=== PATIENT | male | born 1940 | race Caucasian/White ===

== ENCOUNTER 2017-03-29 13:14 | Observation (INO) | payer MEDICARE ==
[2017-03-29 13:57] LABS: #Lymphocytes 2.1 thou/uL (1.20-3.40); #Neutrophils 4.2 thou/uL (1.40-6.50); %Basophils 0.1 % (0.0-1.0); %Eosinophils 0.3 % (0.0-10.0); %Monocytes 13.5 % (0.0-10.0); Hematocrit 41.9 % (42.0-52.0); Red Blood Cell (RBC) Count 4.48 mill/uL (4.70-6.10); White Blood Cell (WBC) Count 7.4 thou/uL (4.8-10.8)
[2017-03-29 14:27] LABS: ALT (SGPT) 47 U/L (8-55); AST (SGOT) 26 U/L (5-34); Alkaline Phosphatase 53 U/L (40-150); Anion Gap 10 mmol/L (10-20); BUN (Urea Nitrogen) 26 mg/dL (8.4-25.7); Bilirubin, Total 0.4 mg/dL (0.2-1.2); CK (CPK) 186 U/L (30-200); Calc. Creatinine Clearance 0 mL/min (70-130); Calcium 8.4 mg/dL (7.8-10.44); Carbon Dioxide 25 mmol/L (23-31); Chloride 107 mmol/L (98-107); Estimated GFR-MDRD 65; Globulin 2.2 g/dL (2.4-3.5); Protein, Total 5.7 g/dL (5.8-8.1)
[2017-03-29 14:30] LABS: Troponin I Less than 0.010 ng/mL (< 0.028)
--- NOTE | 2017-03-29 14:46 | RAD ---
RADIOGRAPH CHEST 1 VIEW: HISTORY: 77-year-old male with acute chest pain. FINDINGS: The thoracic aorta is tortuous and ectatic. There is no evidence of air space density, pneumothorax , or pulmonary edema. The lateral costophrenic angles are sharp. There is a dual lead left subclavian pacemaker. There is no interval change since 10/01/07. IMPRESSION: 1. No acute pulmonary findings. 2. Ectasia of thoracic aorta. 3. Left subclavian pacemaker. levi soto POS: KEVIN
[2017-03-29 16:13] VITALS: BMI 26.5
[2017-03-29] MEDS ORDERED: Artificial Tear Sol 15 ML BOT EA EYE PRN (16:13)
[2017-03-29] MEDS ORDERED: HYDROcodone/Acetaminophen 5/325 mg Tablet PO PRN (16:13)
[2017-03-29] MEDS ORDERED: Sodium Chloride 0.65% Nasal 44 ML BOT EA NARE PRN (16:13)
[2017-03-29] MEDS ORDERED: Zolpidem Tartrate 5 MG TAB PO PRN (16:13)
[2017-03-29] MEDS ORDERED: Eucerin (Mineral Oil/Petrolatum,White) 30 gm Jar TOP PRN (16:13)
[2017-03-29] MEDS ORDERED: Ondansetron HCl/PF 4 MG/2 ML Vial IVP PRN (16:13)
[2017-03-29] MEDS ORDERED: Acetaminophen 325 MG TAB PO PRN (16:13)
[2017-03-29] MEDS ORDERED: hydrALAZINE 20 MG/ML VIAL SLOW IVP PRN (16:13)
[2017-03-29] MEDS ORDERED: Milk Of Magnesia 30 ML UDCUP PO PRN (16:13)
[2017-03-29] MEDS ORDERED: Diabetic Tussin 200 MG/10 ML UDCUP PO PRN (16:13)
[2017-03-29] MEDS ORDERED: Senokot 8.6 MG TAB PO PRN (16:13)
[2017-03-29] MEDS ORDERED: Ondansetron ODT 4 MG TAB PO PRN (16:13)
[2017-03-29] MEDS ORDERED: Nitroglycerin 0.4 MG TAB (25 Tab Bottle) SL PRN (16:13)
[2017-03-29] MEDS ORDERED: Loperamide HCl 2 MG CAP PO PRN (16:13)
--- NOTE | 2017-03-29 16:31 | HP ---
PRIMARY CARE PHYSICIAN: Dr. Didier Lindquist in [place]. REASON FOR ADMISSION: Chest pain, dyspnea. HISTORY OF PRESENT ILLNESS: A 77-year-old male who reports that he had pacemaker done about 9 years ago for low pulse rate and he saw Dr. Bui in January. At that time, he was told that his pacem teja battery is no longer functioning and he is going to see Dr. Bui in next couple of months. This patient was not feeling good yesterday. He does not describe his symptoms well enough, but he feels that he was feeling bloated in his stomach. He was having some epigastric discomfort and he w as also having left-sided chest pain. He was not feeling good test in his mouth. He was also feeli ng more fatigued and weak. Patient was also reporting that lately he was getting out of breath after walking a few steps and he was also having orthopnea. He denies any PND. He denies any lower extremity pitting edema. As he was not feeling better, that is why today he went to a walk-in clinic in [place] and subsequently h e was advised to go to the emergency room for evaluation. Paramedics gave him aspirin. They started on nitro drip, which was stopped when he arrived to the E [facility]. The patient is a very poor historian. He denies any fever or chills. He denies any UTI symptom s. He denies any constipation, diarrhea. He denies any abdominal pain. He denies any dizziness or syncopal episode. REVIEW OF SYSTEMS: The following complete review of systems was negative, unless otherwise mentione d in the HPI or below: CONSTITUTIONAL: Weight loss or gain, ability to conduct usual activities. SKIN: Rash, itching. EYES: Double vision, pain. ENT/MOUTH: Nose bleeding, neck stiffness, pain, tenderness. CARDIOVASCULAR: Palpitations, dyspnea on exertion, orthopnea. RESPIRATORY: Shortness of breath, wheezing, cough, hemoptysis, fever or night sweats. GASTROINTESTINAL: Poor appetite, abdominal pain, heartburn, nausea, vomiting, constipation, or diar niraj. GENITOURINARY: Urgency, frequency, dysuria, nocturia. MUSCULOSKELETAL: Pain, swelling. NEUROLOGIC/PSYCHIATRIC: Anxiety, depression. ALLERGY/IMMUNOLOGIC: Skin rash, bleeding tendency. Please see my HPI for pertinent positives and negatives. All other review of system reviewed and ne gative except as mentioned in the HPI. PAST MEDICAL HISTORY: History of slow heart rate required pacemaker, hypertension. PAST SURGICAL HISTORY: Pacemaker placement, hernia repair. PAST PSYCHIATRIC HISTORY: Reviewed and negative. SOCIAL HISTORY: Patient is and lives at home in [place]. No history of tobacco, alcohol or illicit drug abuse. FAMILY HISTORY: No strong family history of premature coronary artery disease, stroke or cancer. ALLERGIES: No known drug allergies. CURRENT HOME MEDICATIONS: Toprol-XL 25 mg p.o. daily. EMERGENCY ROOM COURSE: Reviewed. The patient was given aspirin, nitro drip by paramedics and IV fl uid by paramedics. PHYSICAL EXAMINATION: VITAL SIGNS: Currently, blood pressure 106/75, pulse 65, respiratory rate is 16, temperature 98.2, saturation 99% on room air. Weight 80.29 kilograms. GENERAL: Patient is currently alert, awake, no obvious acute distress. HEAD: Normocephalic, atraumatic. EYES: Pupils round, reactive to light. Extraocular muscles intact. ENT: Oropharynx within normal limits. Moist mucous membranes. No oral lesions. No pharyngeal angelica thema, no exudate. NECK: Supple. Range of motion is normal. No meningeal signs of irritation. LUNGS: Clear to auscultation, no wheeze, no rhonchi, no rales. CARDIAC: S1, S2 regular. No murmur, no gallop, no rub. Pacemaker in place. ABDOMEN: Patient does have epigastric discomfort, but no peritoneal sign, no organomegaly, no mass, no Wilson's sign, no suprapubic tenderness. BACK: Unremarkable, no CVA tenderness. EXTREMITIES: Upper extremity: Passive movement of all joints are normal. Lower extremities: No e arun. Good peripheral pulsation. SKIN: No skin rash. HEMATOLOGICAL: No lymphadenopathy. NEUROLOGIC: Nonfocal examination. The patient moves all 4 limbs. Plantar bilateral flexor. PSYCHIATRIC: Normal affect. SIGNIFICANT LABS: EKG based on my review pacemaker rhythm. Chest x-ray based on my review, no acut e cardiopulmonary process. Left subclavian pacemaker in place. CBC: WBC 7.4, hemoglobin 14.2, margaret telets 124. BMP: Sodium 138, potassium 4.3, chloride 107, carbon dioxide 25, BUN 26, creatinine 1. 09, glucose 91, calcium 8.4. LFT: AST 26, ALT 47, alkaline phosphatase 53, albumin 3.5, CK 186, CK-MB 5.8. Troponin I less than 0.010. BNP 1250.2. ASSESSMENT AND PLAN/IMPRESSION: 1. Chest pain. The patient does report intermittent left-sided chest pain. His description is aty pical and mostly nonanginal, but we will do serial cardiac enzymes and rule out acute coronary syndr ome for further evaluation. We will perform tomorrow Cardiolite stress test. Meanwhile, we will co ntinue with aspirin 325 mg p.o. daily. We will check lipid profile for risk stratification. We ember l also check TSH. 2. Epigastric pain. The patient also reports epigastric abdominal pain. His LFTs are normal. At this point, we will do right upper quadrant ultrasound to rule out any gallbladder pathology. I ember l treat symptomatically with Pepcid 20 mg p.o. b.i.d. 3. Elevated BNP. Etiology uncertain. This patient does report orthopnea. He does not have any lo wer extremity edema. He does not have any congestion on chest x-ray as well as on examination, we w ill do echocardiography to assess ejection fraction and other structural abnormality. 4. Hypertension. Patient is on Toprol-XL 25 mg p.o. daily, which [facility]. 5. Pacemaker. The patient had pacemaker about 9 years ago and he never checked his pacemaker. We will call pacemaker interrogator company to interrogate his pacemaker and if pacemaker is not functi oning properly, then we will consider Cardiology consultation for his battery exchange during this a dmission if needed. 6. Deep venous thrombosis prophylaxis not needed because we are expecting discharge in 24 hours. 7. Gastrointestinal prophylaxis, Pepcid 20 mg p.o. b.i.d. 8. Code status: The patient is FULL CODE. Disposition plan based on clinical course, likely within 24-48 hours. Plan of care discussed with t he patient's family member in the emergency room.
[2017-03-29] MEDS: Mag-Al 1200 mg/1200 mg/30 ML UDCUP PO PRN (17:47)
[2017-03-29 17:53] LABS: Troponin I 0.011 ng/mL (< 0.028)
[2017-03-29 20:56] LABS: Troponin I Less than 0.010 ng/mL (< 0.028)
[2017-03-29] MEDS: Famotidine 20 MG TAB PO SCH (21:42)
[2017-03-30] MEDS: Mag-Al 1200 mg/1200 mg/30 ML UDCUP PO PRN (05:16)
[2017-03-30 07:55] VITALS: TEMP 97.5
--- NOTE | 2017-03-30 08:32 | ULT ---
ULTRASOUND ABDOMEN LIMITED: (RIGHT UPPER QUADRANT) Date: Time: 0741 hours HISTORY: 77-year-old female with acute epigastric pain. FINDINGS: The gallbladder wall is thickened at the fundus, where it measures approximately 4 mm. No gallstone is identified. No sonographic Wilson's sign. No gallbladder sludge. Gallbladder wall thickness is wi thin normal limits more proximally. Hepatic echogenicity is normal. There is an approximately 1.5 cm hepatic cyst very close to the gall bladder. No hydronephrosis of the right kidney. Common duct is 3 mm in caliber. Nonspecific sonograp hic appearance of the pancreas, which is incompletely visualized. No free fluid in Morison's pouch. IMPRESSION: 1. Mural thickening of the fundus of the gallbladder. Etiology and significance uncertain. 2. No evidence of cholelithiasis, and negative sonographic Wilson's sign. MATILDE Macdonald POS: KEVIN
[2017-03-30] MEDS ORDERED: Aspirin 325 MG TAB PO SCH (09:00)
--- NOTE | 2017-03-30 10:08 | PDOC.PN ---
- Subjective Encounter Start Date: 03/30/17 Encounter Start Time: 07:00 -: old records requested/rev Patient seen and examined. No new complaints. No overnight events - Objective Resuscitation Status: Resuscitation Status FULL:Full Resuscitation MAR Reviewed: Yes Vital Signs & Weight: Vital Signs (12 hours) Temp Pulse Resp BP BP Pulse Ox 03/30/17 08:10 97.5 F L 65 16 03/30/17 07:52 97.5 F L 65 16 113/72 97 03/30/17 04:47 96 03/30/17 03:33 99 F 65 14 110/76 94 L 03/29/17 23:13 98.8 F 65 16 98/64 96 Weight Weight 175 lb 8 oz I&O: 03/29/17 03/30/17 03/31/17 06:59 06:59 06:59 Intake Total 450 Output Total 350 Balance 100 Result Diagrams: 03/29/17 13:41 03/29/17 13:41 EKG Reviewed by me: Yes Phys Exam - Physical Examination Constitutional: NAD HEENT: PERRLA, moist MMs, sclera anicteric Neck: no JVD, supple Respiratory: no wheezing, no rales, no rhonchi Cardiovascular: RRR, no significant murmur, no rub Gastrointestinal: soft, non-tender, no distention, positive bowel sounds Musculoskeletal: no edema, pulses present Neurological: non-focal, normal sensation Psychiatric: normal affect, A&O x 3 Skin: no rash, normal turgor Dx/Plan (1) Chest pain Code(s): R07.9 - CHEST PAIN, UNSPECIFIED Status: Acute (2) Elevated brain natriuretic peptide (BNP) level Code(s): R79.89 - OTHER SPECIFIED ABNORMAL FINDINGS OF BLOOD CHEMISTRY Status : Acute (3) Epigastric abdominal pain Code(s): R10.13 - EPIGASTRIC PAIN Status: Acute (4) Hypertension Code(s): I10 - ESSENTIAL (PRIMARY) HYPERTENSION Status: Chronic (5) Pacemaker Code(s): Z95.0 - PRESENCE OF CARDIAC PACEMAKER Status: Chronic - Plan cont current plan of care, plan discussed w/ family * pacemaker interrogation today * echo today * stress test today * if all unremarkable will dc later today * medication reviewed as below * symptomatic treatment. Review of Systems - Review of Systems ENT: negative: Ear Pain, Ear Discharge, Nose Pain, Nose Discharge, Nose Congestion, Mouth Pain, Mouth Swelling, Throat Pain, Throat Swelling, Other Respiratory: negative: Cough, Dry, Shortness of Breath, Hemoptysis, SOB with Excertion, Pleuritic Pain, Sputum, Wheezing Cardiovascular: negative: Chest Pain, Palpitations, Orthopnea, Paroxysmal Noc. Dyspnea, Edema, Light Headedness, Other Gastrointestinal: negative: Nausea, Vomiting, Abdominal Pain, Diarrhea, Constipation, Melena, Hematochezia, Other Genitourinary: negative: Dysuria, Frequency, Incontinence, Hematuria, Retention , Other Musculoskeletal: negative: Neck Pain, Shoulder Pain, Arm Pain, Back Pain, Hand Pain, Leg Pain, Foot Pain, Other - Medications/Allergies Allergies/Adverse Reactions: Allergies Allergy/AdvReac Type Severity Reaction Status Date / Time No Known Allergies Allergy Verified 03/29/17 16:47 Medications: Current Medications Acetaminophen (Tylenol) 650 mg PO Q4H PRN PRN Reason: Headache/Fever or Pain Last Admin: 03/30/17 05:16 Dose: 650 mg Hydrocodone Bitart/Acetaminophen ([place] 5/325) 1 tab PO Q4H PRN PRN Reason: Moderate Pain (4-6) Al Hydroxide/Mg Hydroxide (Maalox) 30 ml PO Q6H PRN PRN Reason: Heartburn or Indigestion Last Admin: 03/30/17 05:16 Dose: 30 ml Artificial Tears (Tears Renewed 15ml Bottle) 0 drop EA EYE PRN PRN PRN Reason: Dry Eyes Aspirin (Aspirin) 325 mg PO DAILY [facility] Famotidine (Pepcid) 20 mg PO BID [facility] Last Admin: 03/29/17 21:42 Dose: 20 mg Guaifenesin (Robitussin Sf) 200 mg PO Q4H PRN PRN Reason: Cough Hydralazine HCl (Apresoline) 10 mg SLOW IVP Q4H PRN PRN Reason: Systolic BP > 180 Loperamide HCl (Imodium) 2 mg PO PRN PRN PRN Reason: Diarrhea/Loose Stools Magnesium Hydroxide (Milk Of Magnesium) 30 ml PO DAILYPRN PRN PRN Reason: Constipation Mineral Oil/White Petrolatum (Eucerin Cream) 0 gm TOP BIDPRN PRN PRN Reason: Dry Skin Nitroglycerin (Nitrostat) 0.4 mg SL Q5MIN PRN PRN Reason: Chest Pain Ondansetron HCl (Zofran Odt) 4 mg PO Q6H PRN PRN Reason: Nausea/Vomiting Ondansetron HCl (Zofran) 4 mg IVP Q6H PRN PRN Reason: Nausea/Vomiting Senna (Senokot) 2 tab PO HSPRN PRN PRN Reason: Constipation Sodium Chloride ([place] Nasal [place] 0.65%) 0 ml EA NARE QIDPRN PRN PRN Reason: Nasal Congestion Zolpidem Tartrate (Ambien) 5 mg PO HSPRN PRN PRN Reason: Insomnia
[2017-03-30] MEDS: Famotidine 20 MG TAB PO SCH (11:42)
[2017-03-30 11:52] VITALS: BP 111/78
[2017-03-30] MEDS ORDERED: ADENOSINE 60 MG/20 ML VIAL ONE (12:00)
--- NOTE | 2017-03-30 14:08 | NM ---
NUCLEAR MEDICINE CARDIAC MYOCARDIAL PERFUSION SPECT EJECTION FRACTION STUDY WALL MOTION CINE: Date: 03/30/17 HISTORY: 77-year-old male with chest pain and dyspnea. TECHNIQUE: Number of days: 1 Rest study: Tc99m sestamibi (Cardiolite) dose: 9.5 mCi Pharmacologic stress: adenosine dose: 44.2 mg Stress study: Tc99m sestamibi (Cardiolite) dose: 28.3 mCi FINDINGS: CARDIAC (MYOCARDIAL PERFUSION) SPECT Sestamibi uptake throughout the left ventricular myocardium is homogeneous and normal, with no fixed defect and no reversible defect. EJECTION FRACTION STUDY EF = 54% WALL MOTION CINE There is mild hypokinesis of the septum. The rest of the left ventricle moves normally. IMPRESSION: No evidence of myocardial ischemia or infarction. MATILDE Macdonald POS: KEVIN
--- NOTE | 2017-03-30 15:26 | DIS ---
DATE OF ADMISSION: 03/29/2017 DATE OF DISCHARGE: 03/30/2017 PRIMARY CARE PHYSICIAN: Didier Lindquist M.D. in [place]. DISCHARGE DISPOSITION: Home. PRIMARY DISCHARGE DIAGNOSES: 1. Chest pain, ruled out acute coronary syndrome. 2. Elevated BNP due to systolic and diastolic dysfunction. 3. Epigastric abdominal pain, resolved. SECONDARY DISCHARGE DIAGNOSES: Hypertension, pacemaker. PRIMARY PROCEDURE/OPERATION: None. RADIOLOGICAL INVESTIGATION: Chest x-ray normal. Abdominal ultrasound showed fundus of the gallblad la was thick, but no Wilson sign. Echocardiography showed diastolic dysfunction. Stress test was negative for any ischemia. SIGNIFICANT LABORATORY DATA: Hemoglobin 14.2, creatinine 1.09, LDL 68, triglyceride 108. Cholester ol 121, HDL 31. Cardiac enzymes negative. BNP 1250. DISCHARGE MEDICATIONS: The patient will continue all his previous home medications. Aspirin 81 mg p.o. daily, Pepcid 20 mg p.o. b.i.d., Toprol-XL 25 mg p.o. daily, and lisinopril 2.5 mg p.o. daily. CONTRAINDICATIONS: None. CODE STATUS: FULL CODE. INPATIENT CONSULTANTS: None. ALLERGIES: No known drug allergies. DISCHARGE PLAN: Post-hospital, patient will follow with primary care physician. HOSPITAL COURSE: A 77-year-old male with above-mentioned medical problem who was admitted by me. Erlinda bell see my HPI for further details. This patient was having vague epigastric and right-sided ches t pain. The patient was admitted to telemetry floor. We did serial cardiac enzyme and that were ne gative. Surprisingly, his BNP was elevated and he was also having some orthopnea and that is why we did echocardiography and found with systolic and diastolic dysfunction. He was already on Toprol-X L. I started on Lisinopril 2.5 mg p.o. daily. He was having epigastric abdominal pain and that is why I did an abdominal ultrasound that was unremarkable. We also did stress test as a part of ische jarrett workup and that was also negative for any ischemia. At this point, the patient is completely as ymptomatic. We are starting on lisinopril and the above-mentioned medication. The patient is medic ally stable for discharge and he will follow with primary care physician. This patient also has pac emaker and we did a pacemaker interrogation and his battery is going to last for another two and f months and that is why I advised this patient to follow with Dr. Bui, so they can change his pacemaker battery.
--- NOTE | 2017-04-05 11:49 | EKG ---
Test Reason : CHEST PAIN Blood Pressure : / mmHG Vent. Rate : 065 BPM Atrial Rate : 066 BPM P-R Int : 000 ms QRS Dur : 182 ms QT Int : 466 ms P-R-T Axes : 000 -57 094 degrees QTc Int : 484 ms Electronic ventricular pacemaker Confirmed by BRENNEN GOLDEN, GILMAR An ([id number]), assignment editor ONEL DODD ([id number]) on 04/05/2017 11:49:17 AM Referred By: Confirmed By:GILMAR HUTTON MD
--- NOTE | 2017-04-18 10:24 | STRESS ---
Acquisition Time: 2017-03-30 09:39:53 Total Exercise Time: 00:04:00 Test Indications: CHEST PAIN Medications: Protocol: ADENOSINE Max HR: 076 BPM 53% of Pred: 141 BPM Max BP: 120/080 mmHG Max Work Load: 1.0 METS RESTING ECG: VENTRICULAR PACING AT 69 BPM SYMPTOMS: NONE APPROPRIATE BP RESPONSE ECTOPY: NONE ECG STRESS: NO SIGNIFICANT CHANGES INTERPRETATION: INDETERMINATE ECG/AWAIT NUCLEAR IMAGES FOR DEFINITIVE DIAGNOSIS Confirmed by KENDALL MENESES ([id number]), department editor KEYANNA GONZALEZ ([id number]) on 04/18/2017 10:24:01 AM Referred By: MD Mika DOMINGO Confirmed By:KENDALL MENESES
--- NOTE | 2017-05-20 08:59 | EKG ---
Test Reason : CP Blood Pressure : / mmHG Vent. Rate : 065 BPM Atrial Rate : 065 BPM P-R Int : 000 ms QRS Dur : 148 ms QT Int : 420 ms P-R-T Axes : 000 -76 093 degrees QTc Int : 436 ms Poor data quality, interpretation may be adversely affected Electronic ventricular pacemaker When compared with ECG of 29-MAR-2017 13:31, (Unconfirmed) No significant change was found Confirmed by KENDALL MENESES ([id number]) on 05/20/2017 8:59:15 AM Referred By: CHAYO Confirmed By:KENDALL MENESES
== END 2017-03-30 14:29 | disposition home or self-care (01) ==
LOC: ERS 13:14 → 2SW 16:03
PROVIDERS: ADMIT Internal Medicine; ATTEND Internal Medicine
DX: R07.89 Other chest pain (principal); R10.13 Epigastric pain; R79.89 Other specified abnormal findings of blood chemistry; I10 Essential (primary) hypertension; Z95.0 Presence of cardiac pacemaker; Z79.899 Other long term (current) drug therapy; Z98.890 Other specified postprocedural states
CPT/HCPCS: 71010; 76705; 78452; 80053; 80061; 82550; 82553; 83880; 84484 ×2; 85025; 93005; 93017; 93306; 99285; A9500; G0378; 36415; 93010; J0153

== ENCOUNTER 2017-04-01 10:53 | Outpatient (CLI) | payer MEDICARE ==
[2017-04-01 13:36] LABS: Hematocrit 48.9 % (42.0-52.0); Mean Platelet Volume 9.5 fL (7.4-10.4); Red Blood Cell (RBC) Count 5.22 mill/uL (4.70-6.10); White Blood Cell (WBC) Count 7.9 thou/uL (4.8-10.8)
[2017-04-01 13:51] LABS: Anion Gap 12 mmol/L (10-20); BUN (Urea Nitrogen) 22 mg/dL (8.4-25.7); Calc. Creatinine Clearance 0 mL/min (70-130); Calcium 9.4 mg/dL (7.8-10.44); Carbon Dioxide 28 mmol/L (23-31); Chloride 106 mmol/L (98-107); Estimated GFR-MDRD 67
== END 2017-04-01 10:54 | disposition home or self-care (01) ==
LOC: LABBT 10:53
PROVIDERS: ATTEND Internal Medicine Cardiovascular Disease
DX: Z01.818 Encounter for other preprocedural examination (principal)
CPT/HCPCS: 80048; 85027

== ENCOUNTER 2017-04-02 06:01 | Day surgery (SDC) | payer MEDICARE ==
[2017-04-01 10:17] VITALS: BMI 25.8
[2017-04-02] MEDS ORDERED: ceFAZolin Sodium 1 GM VIAL ONE (07:04)
[2017-04-02] MEDS ORDERED: Gentamicin 80 MG/2 ML VIAL ONE (07:05)
[2017-04-02] MEDS ORDERED: Fentanyl 100 MCG/2 ML VIAL ONE (07:19)
[2017-04-02] MEDS ORDERED: Midazolam HCl 2 mg/2 ml Vial ONE (07:19)
[2017-04-02] MEDS ORDERED: Lidocaine 1% (PF) 30 ML VIAL ONE (07:21)
--- NOTE | 2017-04-02 08:36 | CCL ---
PROCEDURE NOTE: Date: 04/02/17 PROCEDURE: Pacemaker generator change. INDICATION: Pacemaker at elective replacement indicator. DESCRIPTION OF PROCEDURE: The patient was brought to the cardiac labor economist and the left subclavian area was prepped and draped. Patient was given Versed 1 mg and fentanyl 25 mg for sedation. Sedation was monitored throughout the duration of the case for approximately 45 minutes. 1% lidocaine was infiltrated. Pacemaker generator was removed using blunt and sharp dissection. Plasma electrocautery was used. An antibiotic solution-soaked gauze was placed into the pocket after the pacemaker was removed. Right atrial lead: P-wave 5.6, impedance 436, threshold 0.4 volts. Right ventricular lead: R-wave 18.1 impedance 1024, threshold 0.4 volts. The antibiotic solution-soaked gauze was removed and further hemostasis was obtained. The subcutaneous pocket was irrigated with copious amounts of antibiotic solution. The leads were attached to the new pacemaker generator and this was inserted into the pocket and secured in place with one suture of 0 silk. The incision was then closed using two layers of running 3-0 Vicryl and one layer running 4-0 Vicryl. Dermabond was placed on the incision. The patient tolerated the procedure well. WHIT
== END 2017-04-02 11:15 | disposition home or self-care (01) ==
LOC: CCL 06:01
PROVIDERS: ATTEND Internal Medicine Cardiovascular Disease
PROC: 0JPT0PZ Removal of Cardiac Rhythm Related Device from Trunk Subcutaneous Tissue and Fascia, Open Approach (ICD-10-PCS; principal; 2017-04-02)
PROC: 0JH606Z Insertion of Pacemaker, Dual Chamber into Chest Subcutaneous Tissue and Fascia, Open Approach (ICD-10-PCS; 2017-04-02)
DX: Z45.010 Encounter for checking and testing of cardiac pacemaker pulse generator [battery] (principal); N40.0 Benign prostatic hyperplasia without lower urinary tract symptoms; I50.30 Unspecified diastolic (congestive) heart failure; I11.0 Hypertensive heart disease with heart failure; Z79.82 Long term (current) use of aspirin
CPT/HCPCS: 33228; C1785; 99152; 99153; J0690; J1580; J2001; J2250; J3010

== ENCOUNTER 2023-12-11 10:07 | Outpatient (CLI) | payer MEDICARE ==
[2023-12-11 13:08] LABS: #Basophils 0.02 10x3/uL (0.0-0.2); #Eosinphils 0.26 10x3/uL (0.0-0.5); #Neutrophils 2.53 10x3/uL (1.5-8.4); %Basophils 0.3 % (0.0-2.0); %Eosinophils 4.3 % (0.0-6.0); %Monocytes 11.7 % (0.0-10.0); %Neutrophils 42.4 % (40.0-75.0); Hematocrit 44.5 % (38.8-50.0); Hemoglobin 15.5 g/dL (13.5-17.5); Mean Corpuscular HGB CONC 34.8 g/dL (32.0-36.0); Mean Corpuscular Hemoglobin 31.6 pg (27.0-33.0); Mean Corpuscular Volume 90.6 fL (81.2-95.1); Mean Platelet Volume 11.4 fL (7.4-10.4); Platelet Count 173 10x3/uL (150-450); RBC Distribution Width 12.8 % (11.5-14.5); Red Blood Cell (RBC) Count 4.91 10x6/uL (4.32-5.72)
== END 2023-12-11 10:08 | disposition home or self-care (01) ==
LOC: LABBT 10:07
PROVIDERS: ATTEND Orthopaedic Surgery Hand Surgery
DX: Z01.818 Encounter for other preprocedural examination (principal); G56.03 Carpal tunnel syndrome, bilateral upper limbs
CPT/HCPCS: 85025; 93005; 93010

== ENCOUNTER 2023-12-16 06:44 | Day surgery (SDC) | payer MEDICARE ==
[2023-12-11 10:56] VITALS: BMI 24.7
[2023-12-16] MEDS ORDERED: Betamet Acet/Betamet Na Ph 30 MG/5 ML VIAL ONE (09:12)
[2023-12-16] MEDS ORDERED: Bacitracin Zinc Ointment 30 gm TUBE ONE (09:12)
[2023-12-16] MEDS ORDERED: Bupivacaine PF 0.5% 30 ML VIAL ONE (09:13)
[2023-12-16] MEDS ORDERED: Sodium Chloride 0.9% 100 ML ONE (09:30)
[2023-12-16] MEDS ORDERED: CEFAZOLIN 2 GM VIAL ONE (09:30)
[2023-12-16] MEDS ORDERED: PROPOFOL 20 ML ONE (09:30)
[2023-12-16] MEDS ORDERED: fentaNYL PF 100 MCG/2 ML SYRINGE ONE (09:53)
[2023-12-16] MEDS ORDERED: Ondansetron PF 4 MG/2 ML Vial ONE (09:55)
[2023-12-16] MEDS ORDERED: Dexamethasone 4 mg/ml Vial ONE (09:55)
[2023-12-16] MEDS ORDERED: Lidocaine 1% PF 5 ML VIAL ONE (09:55)
[2023-12-16] MEDS ORDERED: PHENYLEPHRINE-NS 100 MCG/ML 10 ML SYRINGE ONE (09:59)
== END 2023-12-16 12:03 | disposition home or self-care (01) ==
LOC: SDC 06:44
PROVIDERS: ATTEND Orthopaedic Surgery Hand Surgery
PROC: 01N53ZZ Release Median Nerve, Percutaneous Approach (ICD-10-PCS; principal; 2023-12-16)
DX: G56.03 Carpal tunnel syndrome, bilateral upper limbs (principal); I25.10 Atherosclerotic heart disease of native coronary artery without angina pectoris; I48.91 Unspecified atrial fibrillation; Z98.890 Other specified postprocedural states; Z79.01 Long term (current) use of anticoagulants; Z79.890 Hormone replacement therapy; Z79.899 Other long term (current) drug therapy
CPT/HCPCS: 64721; A6223; J0665; J1100; J2405; J2704; J3490; J0702

== ENCOUNTER 2024-06-15 10:36 | Outpatient (CLI) | payer MEDICARE ==
[2024-06-15 11:49] LABS: #Basophils 0.04 10x3/uL (0.0-0.2); %Basophils 0.6 % (0.0-1.0); %Eosinophils 10.9 % (0.0-10.0); %Lymphocytes 37.4 % (21.0-51.0); %Monocytes 10.1 % (0.0-10.0); %Neutrophils 40.7 % (42.0-75.0); Hematocrit 45.2 % (42.0-52.0); Hemoglobin 15.4 g/dL (14.0-18.0); Mean Corpuscular HGB CONC 34.1 g/dL (32.0-36.0); Mean Corpuscular Hemoglobin 30.1 pg (27.0-31.0); Mean Corpuscular Volume 88.5 fL (78.0-98.0); Mean Platelet Volume 10.7 fL (7.4-10.4); Platelet Count 166 10x3/uL (130-400); RBC Distribution Width 12.6 % (11.5-14.5); Red Blood Cell (RBC) Count 5.11 mill/uL (4.70-6.10)
[2024-06-15 12:11] LABS: Anion Gap 9 mmol/L (10-20); BUN (Urea Nitrogen) 17 mg/dL (8.4-25.7); Calc. Creatinine Clearance 0 mL/min (70-130); Calcium 8.8 mg/dL (7.8-10.44); Carbon Dioxide 26 mmol/L (23-31); Chloride 106 mmol/L (98-107); Estimated GFR 63; Glucose 86 mg/dL (83-110); Potassium 4.3 mmol/L (3.5-5.1); Sodium 137 mmol/L (136-145)
== END 2024-06-15 10:37 | disposition home or self-care (01) ==
LOC: LABBT 10:36
PROVIDERS: ATTEND Orthopaedic Surgery Hand Surgery
DX: Z01.818 Encounter for other preprocedural examination (principal); G56.03 Carpal tunnel syndrome, bilateral upper limbs
CPT/HCPCS: 80048; 85025; 93005; 93010

== ENCOUNTER 2024-06-18 09:15 | Day surgery (SDC) | payer MEDICARE ==
[2024-06-15 10:59] VITALS: BMI 24.7
[2024-06-18] MEDS ORDERED: Bupivacaine PF 0.5% 30 ML VIAL ONE (12:03)
[2024-06-18] MEDS ORDERED: Bacitracin Zinc Ointment 30 gm TUBE ONE (12:03)
[2024-06-18] MEDS ORDERED: PROPOFOL 20 ML ONE (12:32)
[2024-06-18] MEDS ORDERED: fentaNYL 50 mcg/mL 1 mL Vial ONE (12:33)
[2024-06-18] MEDS ORDERED: Dexamethasone 20 MG/5 ML VIAL ONE (12:34)
[2024-06-18] MEDS ORDERED: Lidocaine 1% PF 5 ML VIAL ONE (12:34)
[2024-06-18] MEDS ORDERED: Ondansetron PF 4 MG/2 ML Vial ONE (12:34)
[2024-06-18] MEDS ORDERED: CEFAZOLIN 2 GM VIAL ONE (12:39)
[2024-06-18] MEDS ORDERED: ePHEDrine Sulfate 50 MG/10 ML VIAL ONE (12:56)
== END 2024-06-18 14:43 | disposition home or self-care (01) ==
LOC: SDC 09:15
PROVIDERS: ATTEND Orthopaedic Surgery Hand Surgery
PROC: 01N50ZZ Release Median Nerve, Open Approach (ICD-10-PCS; principal; 2024-06-18)
DX: G56.01 Carpal tunnel syndrome, right upper limb (principal); I25.10 Atherosclerotic heart disease of native coronary artery without angina pectoris; I48.0 Paroxysmal atrial fibrillation; E07.9 Disorder of thyroid, unspecified; Z79.899 Other long term (current) drug therapy; Z95.0 Presence of cardiac pacemaker
CPT/HCPCS: 64721; A6223; J0665; J1100; J2405; J2704; J3010

== ENCOUNTER 2025-06-28 10:11 | Outpatient (CLI) | payer MEDICARE ==
[2025-06-28 11:32] LABS: #Basophils Less than 0.03 10x3/uL (0.0-0.2); #Eosinophils 0.33 10x3/uL (0.0-0.7); #Monocytes 0.70 10x3/uL (0.11-0.59); #Neutrophils 3.74 10x3/uL (1.40-6.50); %Basophils 0.3 % (0.0-1.0); %Eosinophils 4.3 % (0.0-10.0); %Lymphocytes 36.8 % (21.0-51.0); %Monocytes 9.2 % (0.0-10.0); %Neutrophils 49.1 % (42.0-75.0); Hematocrit 47.8 % (42.0-52.0); Hemoglobin 15.6 g/dL (14.0-18.0); Mean Corpuscular Hemoglobin 29.4 pg (27.0-31.0); Mean Corpuscular Volume 90.0 fL (78.0-98.0); Platelet Count 156 10x3/uL (130-400); Red Blood Cell (RBC) Count 5.31 mill/uL (4.70-6.10); White Blood Cell (WBC) Count 7.61 10x3/uL (4.8-10.8)
[2025-06-28 11:46] LABS: INR-International Normal Ratio 1.2; Prothrombin Time 15.2 sec (12.0-14.7)
[2025-06-28 11:50] LABS: Bacteria/HPF None Seen HPF (None Seen); Glucose, Urine (Dipstick) Normal (Negative); Leukocyte Negative Leu/uL (Negative); Protein, Urine (Dipstick) Negative (Neg-Trace); RBC/HPF 0-3 HPF (0-3); Specific Gravity, Urine 1.014 (1.002-1.036); WBC/HPF 0-3 HPF (0-3)
[2025-06-28 11:51] LABS: Anion Gap 10 mmol/L (10-20); BUN (Urea Nitrogen) 15 mg/dL (8.4-25.7); Calc. Creatinine Clearance 0 mL/min (70-130); Calcium 8.8 mg/dL (7.8-10.44); Carbon Dioxide 26 mmol/L (23-31); Chloride 108 mmol/L (98-107); Glucose 93 mg/dL (83-110); Potassium 4.4 mmol/L (3.5-5.1); Sodium 140 mmol/L (136-145)
== END 2025-06-28 10:12 | disposition home or self-care (01) ==
LOC: LABBT 10:11
PROVIDERS: ATTEND Orthopaedic Surgery
DX: Z01.818 Encounter for other preprocedural examination (principal); M17.11 Unilateral primary osteoarthritis, right knee
CPT/HCPCS: 71046; 80048; 81001; 85025; 85610; 87081; 93005; 93010

== ENCOUNTER 2025-06-28 11:13 | Outpatient (CLI) | payer MEDICARE | END 2025-06-28 11:14 | disposition home or self-care (01) | LOC: CT 11:13 | PROVIDERS: ATTEND Orthopaedic Surgery | DX: Z01.818 Encounter for other preprocedural examination (principal); M17.11 Unilateral primary osteoarthritis, right knee ==